=== PATIENT | female | born 1985 | race Caucasian/White ===

== ENCOUNTER 2018-04-16 11:46 | Emergency (ER) | END 2018-04-16 14:33 | disposition home or self-care (01) ==

== ENCOUNTER → 2019-05-13 | Emergency (ER) | payer BC, MEDICAID ==
[~2019-05-13] VITALS: Wt 90.0 kg
[~2019-05-13] MED LIST: CEPH-443 PO; NAPR-985 PO; SULF-182 PO
[2019-05-13 10:12] VITALS: BP 119/63; PULSE 91; RESP 18
== END | disposition left against medical advice (07) ==
LOC: FTE 10:09
DX: Z53.21 Procedure and treatment not carried out due to patient leaving prior to being seen by health care provider (principal)